=== PATIENT | female | born 1980 | race Two or more races ===

== ENCOUNTER 2020-08-21 13:43 | Emergency (ER) | payer SELFPAY ==
[~2020-08-21] VITALS: Ht 165.1 cm; Wt 80.3 kg
[2020-08-21 13:50] VITALS: BP 127/80
[2020-08-21] MEDS ORDERED: LIDOCAINE HCL/MPF 1% 30 ML VIAL IJ ONE (14:00)
[2020-08-21] MEDS ORDERED: CEPHALEXIN MONOHYDRATE 500 MG CAPSULE PO ONE ×2 (14:12→14:30)
[2020-08-21] MEDS ORDERED: CEPH500C2 PO (14:24)
== END 2020-08-21 14:40 | disposition home or self-care (01) ==
LOC: ER 13:50
DX: L60.0 Ingrowing nail (principal); E11.9 Type 2 diabetes mellitus without complications
CPT/HCPCS: 11730; 99284; A6403; J3490

== ENCOUNTER 2020-10-21 13:57 | Emergency (ER) | payer SELFPAY ==
[~2020-10-21] VITALS: Ht 162.6 cm; Wt 77.1 kg
[~2020-10-21 13:57] MED LIST: CEPH500C2 PO
--- NOTE | 2020-10-21 14:24 | NUR ---
Complained of scalp irritation, possible infection
--- NOTE | 2020-10-21 14:26 | NUR ---
Awaiting for MD or ER provider to see the patient The patient was placed on ER chair 1
[2020-10-21] MEDS ORDERED: SULF1TAB48 PO (15:30)
[2020-10-21] MEDS ORDERED: CEPH500C2 PO (15:30)
[2020-10-21] MEDS ORDERED: IBUP-1957 PO (15:30)
[2020-10-21] MEDS ORDERED: LIDOCAINE 0.5%-EPI 1:200,000 50 ML VIAL TP ONE (15:30)
--- NOTE | 2020-10-21 15:35 | NUR ---
Patient discharged to home in stable condition. Written and verbal after care instructions given. Patient verbalizes understanding of instruction.
[2020-10-21 15:36] VITALS: BP 126/71
== END 2020-10-21 15:37 | disposition home or self-care (01) ==
LOC: ER 13:59
DX: L72.3 Sebaceous cyst (principal); E11.9 Type 2 diabetes mellitus without complications